=== PATIENT | male | born 1940 | race Caucasian/White ===

== ENCOUNTER → 2017-10-04 09:23 | Outpatient (CLI) | payer MEDICARE, SELFPAY ==
--- NOTE | 2017-10-04 | DI.NM.S_ITS ---
PROCEDURE: NM BONE SCAN WHOLE BODY RADIOPHARMACEUTICAL: 20 mCi Tc-99m MDP IV. INDICATIONS: PROSTATE CANCER TECHNIQUE: Delayed whole-body scintigrams were obtained approximately 3-4 hours after intravenous injection of radiotracer. Anterior and posterior views were acquired from vertex to feet. COMPARISON: [facility], CT, CT CHEST ABD PEL W CON, 10/04/2017, 10:16. FINDINGS: The osteoblastic metastatic disease seen by CT scanning earlier today is accompanied by abnormal isotope uptake concordant with the findings of metastatic disease which appears most prominent at the proximal humeral metadiaphyseal junction on the right and at the manubrium and sternomanubrial junction at the midline anteriorly. Additionally, scattered areas of elevated osseous uptake is seen along the thoracic and lumbosacral spine, and scattered to a smaller degree along the ribs bilaterally. Left greater than right isotope uptake at the medial iliac bones and the sacroiliac joint areas is present, correlated with the CT findings in those areas. 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 There is superimposed degenerative osteoarthritic change involving the upper and lower extremities bilaterally. Dictated by: Johnny Zhang M.D. on 10/04/2017 at 13:50 Approved by: Johnny Zhang M.D. on 10/04/2017 at 13:56
--- NOTE | 2017-10-04 | DI.CT.S_ITS ---
PROCEDURE: CT CHEST ABD PEL W CON INDICATIONS: PROSTATE CANCER TECHNIQUE: After the administration of oral and intravenous contrast, 5 mm thick sections acquired from the lung apices to the symphysis. 5 mm coronal and sagittal reformats were performed, with additional 7 mm coronal MIP reformats through the lungs. For radiation dose reduction, the following was used: automated exposure control, adjustment of mA and/or kV according to patient size. COMPARISON: [facility], CT, THORAX WITH CONTRAST, 11/20/2007, 9:45. FINDINGS: Image quality: Excellent. CHEST: Lungs and pleura: No acute airspace opacities. There is mild pleural plaquing and calcifications consistent with old asbestos exposure but no malignant appearing mass within the pleural space or adjacent lung parenchyma is found. Mild pleural scarring. No pleural effusions or pneumothorax. Central and peripheral airways appear patent and normal in caliber. Mediastinum: Heart size is normal. No pericardial effusion. No mediastinal or hilar adenopathy by size criteria. Thoracic aorta and central pulmonary arteries are normal in size. Esophagus is normal in caliber. There is a very small hiatal hernia behind the heart. Chest wall: No axillary or supraclavicular adenopathy by size criteria. Note is made of a rounded nodule in the subcutaneous fat in apposition to the cutaneous margin of the left paramedian upper back/lower neck junction (series 2 image 1) measuring approximately 1.6 cm in maximal dimension, of uncertain etiology and clinical significance. This may represent a sebaceous cyst. Thyroid gland appears normal where well visualized. There is osteoblastic metastatic disease. See pelvis section for further discussion. ABDOMEN: Solid organs: Liver is normal in size and enhancement. Gallbladder appears normal. Biliary system is non dilated. Pancreas enhances normally. Spleen is normal in size and enhancement. No adrenal nodules. Kidneys demonstrate normal size and enhancement, without hydronephrosis. There is a double pigtail left ureteral stent in normal position above and below. Peritoneum and bowel: Bowel loops demonstrate normal wall thickness and caliber. No free fluid or air. Nodes and vessels: No retroperitoneal or mesenteric adenopathy by size criteria. Aorta and inferior vena cava are normal in size. Miscellaneous: No ventral hernias. Osteoblastic metastatic disease, please see pelvis section for further discussion. PELVIS: Genitourinary: Bladder wall thickness is normal. Prostate gland contains multiple radiation therapy seed implants. Miscellaneous: No inguinal hernias or adenopathy. Bones: There are suspicious osteoblastic bony lesions seen within the chest, abdomen and pelvis characteristic of metastatic disease. No vertebral body compression fractures. The osteoblastic lesions are numerous, with a moderate overall severity of metastatic disease. For example, within the chest, a sclerotic focus is seen at the middle third of the right clavicle and the pedicle and lamina and facet base of the left aspect of T1 is osteoblastic in radiodensity. Scattered rib osteoblastic lesions are seen. Scattered small spinal vertebral body lesions can be found easily. The inferior left scapula contains metastatic osteoblastic change. Within the abdomen the pattern of spinal metastatic disease with osteoblastic lesions is seen, with the largest lesions located at the mid kidney level measuring up to 3.3 x 3.5 cm. Within the pelvis sacral and iliac bone osteoblastic lesions are present more prominent on the left than the right including extending to involve the roof of the left acetabulum. The right ischial tuberosity contains osteoblastic change. IMPRESSION: Osseous metastatic disease is moderate in overall severity consistent with prostate carcinoma metastasis. No pathologic fracture is associated. Note is made of multiple prostate radiation therapy seed implants. A 1.6 cm diameter rounded soft tissue mass is present against the cutaneous margin of the upper back/lower neck just to the left of midline in an area not included on prior CT scan from 2007. By appearance this is most likely a sebaceous cyst. Please correlate clinically. No adenopathy seen, no visceral involvement by prostate carcinoma metastasis is found. Calcific pleural plaquing and calcifications with mild pleural scarring is present bilaterally consistent with old asbestos exposure. Dictated by: Johnny Zhang M.D. on 10/04/2017 at 11:58 Approved by: Johnny Zhang M.D. on 10/04/2017 at 12:08
== END ==
PROVIDERS: PCP Family Medicine Geriatric Medicine; Visit Provider Internal Medicine
DX: C61 Malignant neoplasm of prostate (principal); C79.51 Secondary malignant neoplasm of bone; M19.012 Primary osteoarthritis, left shoulder; M19.011 Primary osteoarthritis, right shoulder; M17.0 Bilateral primary osteoarthritis of knee; M19.072 Primary osteoarthritis, left ankle and foot; M19.071 Primary osteoarthritis, right ankle and foot
CPT/HCPCS: 71260; 74177; 78306; A9503; Q9967

== ENCOUNTER → 2018-03-12 08:25 | Outpatient (CLI) | payer MEDICARE, SELFPAY ==
--- NOTE | 2018-03-12 | DI.NM.S_ITS ---
PROCEDURE: PR BONE SCAN WHOLE BODY RADIOPHARMACEUTICAL: 22.0 mCi Tc-99m MDP IV. INDICATIONS: PROSTATE CANCER TECHNIQUE: Delayed whole-body scintigrams were obtained approximately 3-4 hours after intravenous injection of radiotracer. Anterior and posterior views were acquired from vertex to feet. COMPARISON: [place], [place], [place] BONE SCAN WHOLE BODY, 10/04/2017, 13:21. FINDINGS: With reference to the prior nuclear medicine bone scan from 10/04/17 there has been no appreciable improvement or worsening of the previously identified extensive osseous metastatic disease involving the axial and appendicular skeleton, but a new focus of abnormal isotope deposition is identified a small portion of the left femoral diaphysis, at approximately the junction of the middle and upper thirds. This is best seen on the frontal projection, in an area previously normal. Previously identified degenerative changes over the shoulders, knees, and ankle regions bilaterally are again seen, stable over time. IMPRESSION: A small interval degree of worsening of osseous metastatic disease is identified by this study, superimposed upon previously present disease. The focus that is minimal is located at the junction of the middle and upper thirds of the left femoral diaphysis in an area previously normal in September of last year. Otherwise no change. Dictated by: Johnny Zhang M.D. on 03/12/2018 at 13:25 Approved by: Johnny Zhang M.D. on 03/12/2018 at 13:29
--- NOTE | 2018-03-12 | DI.CT.S_ITS ---
PROCEDURE: CT CHEST ABD PEL W CON INDICATIONS: PROSTATE CANCER TECHNIQUE: After the administration of oral and intravenous contrast, 5 mm thick sections acquired from the lung apices to the symphysis. 5 mm coronal and sagittal reformats were performed, with additional 7 mm coronal MIP reformats through the lungs. For radiation dose reduction, the following was used: automated exposure control, adjustment of mA and/or kV according to patient size. COMPARISON: [facility], CT, CT CHEST ABD PEL W CON, 10/04/2017, 10:16. FINDINGS: Image quality: Excellent. CHEST: Lungs and pleura: Calcified pleural plaques are again seen scattered in bilateral lung haynes suggestive of prior asbestos exposure. Scarring/atelectasis in periphery of the bilateral lung haynes are seen. No pleural effusions or pneumothorax. Central and peripheral airways appear patent and normal in caliber. Mediastinum: Heart size is normal. No pericardial effusion. No mediastinal or hilar adenopathy by size criteria. Thoracic aorta and central pulmonary arteries are normal in size. Esophagus is normal in caliber. There is a small hiatal hernia. Chest wall: No axillary or supraclavicular adenopathy by size criteria. Thyroid gland is within normal limits. ABDOMEN: The Solid organs: Liver is normal in size and enhancement. Gallbladder is within normal limits. Biliary system is non dilated. Pancreas enhances normally. Spleen is normal in size and enhancement. No adrenal nodules. Kidneys demonstrate normal size and enhancement. There is no right-sided hydronephrosis. Left sided ureteral stent is again seen with mild prominence of left renal pelvis and renal collecting system not significantly changed from previous study. Peritoneum and bowel: Bowel loops demonstrate normal wall thickness and caliber. No free fluid or air. Nodes and vessels: No retroperitoneal or mesenteric adenopathy by size criteria. Aorta and inferior vena cava are normal in size. Miscellaneous: No ventral hernias. PELVIS: Genitourinary: Mild diffuse bladder wall thickening is noted. Large prostate gland is seen with mass effect fluoroscopy view of a bladder. Numerous brachytherapy seeds are noted within prostate gland. Miscellaneous: No inguinal hernias or adenopathy. Bones: Extensive osteoblastic bony lesions are again seen scattered throughout sternum, right clavicle, bilateral scapula, visualized right femoral head, multiple bilateral ribs, bilateral thoracic and lumbar spine vertebral bodies and throughout bony pelvis, not significantly changed in size and appearance from previous study consistent with bony metastasis. No acute compression fracture is seen in thoracic or lumbar spine. No evidence of pathologic rib fracture or pelvic fracture. Previously described 1.6 cm round soft tissue mass in the cutaneous margin of left upper back is not included on the current study. IMPRESSION: 1. Extensive bony metastasis, not significantly changed from previous study. No pathologic fracture is seen. 2. Previously described 1.6 cm soft tissue mass in the left upper back is not included on the current study. 3. No adenopathy is seen in chest, abdomen or pelvis. 4. Stable appearing calcified pleural plaques in bilateral lung haynes with bilateral pleural scarring, suggestive of prior asbestos exposure. No soft tissue density pulmonary nodule or mass is seen. 5. No evidence of metastatic disease is seen involving solid organ of abdomen or pelvis. Left sided ureteral stent is in place and is unchanged. Dictated by: Jose A Rajan M.D. on 03/12/2018 at 13:29 Approved by: Jose A Rajan M.D. on 03/12/2018 at 13:50
== END ==
PROVIDERS: Family Provider Urology; PCP Family Medicine Geriatric Medicine; Visit Provider Internal Medicine
DX: C61 Malignant neoplasm of prostate (principal); C79.51 Secondary malignant neoplasm of bone; J98.4 Other disorders of lung; K44.9 Diaphragmatic hernia without obstruction or gangrene; Z96.0 Presence of urogenital implants
CPT/HCPCS: 71260; 74177; 78306; A9503; Q9967